=== PATIENT | male | born 1965 | race Caucasian/White ===

== ENCOUNTER 2017-10-06 16:47 | Inpatient (IN) | payer OTHER ==
[~2017-10-06] VITALS: Ht 188 cm; Wt 131.5 kg
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
[2017-10-06] MEDS ORDERED: MAGNESIUM HYDROXIDE 30 ML LIQUID UDC PO PRN (18:15)
[2017-10-06] MEDS ORDERED: LOPERAMIDE HCL 2 MG CAPSULE PO PRN ×2 (18:15)
[2017-10-06] MEDS ORDERED: ONDANSETRON 4 MG/2 ML VIAL IM PRN (18:15)
[2017-10-06] MEDS ORDERED: MIRALAX 17 GM POWD.PACK PO PRN (18:15)
[2017-10-06] MEDS ORDERED: 5 DAY TAPER BUPRENORPHINE -SERENITY PROTOCOL SL PRN (18:15)
[2017-10-06] MEDS ORDERED: DICYCLOMINE HCL 20 MG TABLET PO PRN (18:15)
[2017-10-06] MEDS ORDERED: MAG HYDROX/AL HYDROX/SIMETH 30 ML LIQUID UDC PO PRN (18:15)
[2017-10-06] MEDS ORDERED: ONDANSETRON ODT 4 MG TAB.RAPDIS SL PRN (18:15)
[2017-10-06 18:19] VITALS: BP 147/75
[2017-10-06 18:54] LABS: *AMPHETAMINE, URINE NEGATIVE (NEGATIVE); *BARBITURATE, URINE NEGATIVE (NEGATIVE); *CANNABINOID, URINE POSITIVE (NEGATIVE); *COCCAINE, URINE POSITIVE (NEGATIVE); *OPIATE, URINE POSITIVE (NEGATIVE); *PHENCYCLIDINE SCREEN,URINE NEGATIVE (NEGATIVE)
[2017-10-06] MEDS: BUPRENORPHINE HCL 2 MG TAB.SUBL SL PRN (18:59)
--- NOTE | 2017-10-06 19:02 | NUR ---
PRN GIVEN pt is noted with increase anxiety and agitation. Pt is observed restless and shifting in bed, facial grimacing and groaning, stuffy nose and tachy. Pt is c/o of generalized body aches 10/10. COWS scores was 20. Pt was given Subutex 4mg SL PRN as ordered. Endorsed to vending service technician nurse to re-assess PRN and to continue with admission.
[2017-10-06] MEDS: LORAZEPAM 1 MG TABLET PO PRN (19:23)
[2017-10-06] MEDS: IBUPROFEN 600 MG TABLET PO PRN (19:23)
[2017-10-06] MEDS: METHOCARBAMOL 750 MG TABLET PO PRN (19:23)
--- NOTE | 2017-10-06 19:25 | NUR ---
BEHAVIOR NOTE PT NOTED TO BE AGITATED,IRRITABLE AND C/O PAIN.BEGAN THROWING THINGS IN THE ROOM,ESCALATING IN BEHAVIOR,BEGAN CURSING AND YELLING AT STAFF,STATED " WHEN IS THE FUCKING DOCTOR COMING? I AM IN THE HOSPITAL AND STILL FEEL LIKE SHIT".EMOTIONAL SUPPORT AND RELAXATION TECHNIQUES EMPLOYED AND WERE HELPFUL IN CALMING HIM DOWN.EDUCATED ON UNIT RULES AND MEDICATIONS,WILL CONTINUE TO MONITOR.
[2017-10-06 20:00] VITALS: BP 104/56
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
[2017-10-06] MEDS: diphenhydrAMINE 50 MG CAPSULE PO PRN (20:10)
--- NOTE | 2017-10-06 20:10 | NUR ---
PRN MED PT CONTINUES TO REMAIN ANXIOUS AND RESTLESS,UNABLE TO SLEEP.PRN BENADRYL 50MG PO GIVEN FOR C/O INSOMNIA.WILL CONTINUE TO MONITOR.
[2017-10-06] MEDS ORDERED: OXYC30TA2 PO (20:44)
[2017-10-06] MEDS ORDERED: HYDR25TA4 PO (20:45)
[2017-10-06] MEDS ORDERED: CARV25TA PO (20:48)
--- NOTE | 2017-10-06 21:10 | NUR ---
PRN REASSESSMENT PT IS CALM AND SLEEPING AT THIS TIME.
--- NOTE | 2017-10-07 | NUR ---
COWS SORE IS 22.PT IS ANXIOUS,RESTLESS,MOANING AND GROANING D/T PAIN.REFUSED V/S./
--- NOTE | 2017-10-07 00:10 | NUR ---
PT REFUSED TO COOPERATE WITH BLOOD DRAW FOR LAB WORK X 2.PROMPTING AND PT TEACHING INEFFECTIVE.
[2017-10-07] MEDS: BUPRENORPHINE HCL 2 MG TAB.SUBL SL PRN ×2 (00:22→05:28)
[2017-10-07] MEDS: LORAZEPAM 1 MG TABLET PO PRN ×2 (00:22→05:28)
--- NOTE | 2017-10-07 00:22 | NUR ---
PRN MEDS PT IS AWAKE,MOANING AND GROANING IN PAIN,PRN SUBUTEX 4MG SL GIVEN FOR COWS 22,AND PRN ATIVAN 2 MG PO GIVEN FOR ANXIETY/AGITATION.WILL MONITOR.
[2017-10-07] MEDS: KETOROLAC TROMETHAMINE 30 MG INJ IM PRN ×2 (00:28→21:27)
--- NOTE | 2017-10-07 00:28 | NUR ---
PRN TORADOL 30 MG IM GIVEN FOR BILATERAL HIP AND LEG PAIN.PAIN LEVEL IS 10/10.WILL MONITOR FOR EFFECTIVENESS.
--- NOTE | 2017-10-07 01:25 | NUR ---
PRN REASSESSMENT PT IS CALM AND SLEEPING AT THIS TIME,UNABLE TO ASSESS FOR COWS D/T PT BEING ASLEEP.
[2017-10-07 04:00] VITALS: BP 141/90
--- NOTE | 2017-10-07 04:00 | NUR ---
COWS DEFERRED DUE TO PT BEING ASLEEP.
[2017-10-07] MEDS: IBUPROFEN 600 MG TABLET PO PRN (05:19)
[2017-10-07] MEDS: METHOCARBAMOL 750 MG TABLET PO PRN (05:19)
--- NOTE | 2017-10-07 05:19 | NUR ---
PT C/O PAIN IN BOTH LEGS BELOW HIS HIPS.PAIN LEVEL IS 10/10.PRN MEDS MOTRIN AND ROBAXIN GIVES ORDERED.WILL MONITOR FOR EFFECTIVENESS.
--- NOTE | 2017-10-07 05:28 | NUR ---
COWS=20 PRN SUBUTEX 4MG SL GIVEN FOR COWS 20.PRN ATIVAN 2 MG PO GIVEN FOR ANXIETY/AGITATION AND RESTLESSNESS.PT IS RESTLESS,AGITATED,UNABLE TO SIT STILL.LIVING AREA IS FULL OF CLUTTER WITH FOOD AND CHIPS ALL OVER THE FLOOR AND BED.PHYSICAL APPEARANCE IS DISHEVELLED AND UNKEMPT.PERSONAL HYGIENE AND CLEANLINESS ENCOURAGED.WILL CONTINUE TO MONITOR.
--- NOTE | 2017-10-07 06:30 | NUR ---
PRN F/U PT IS CALM AND RESTING IN BED WITH EYES CLOSED.NO S/S OF DISTRESS NOTED.WILL CONTINUE TO MONITOR.
--- NOTE | 2017-10-07 06:39 | NUR ---
END OF SHIFT Pt is a 52 y/o male admitted to [facility] for medically supervised withdrawals from Opiates.A/O X 4.Pt received multiple PRN medications during the night : Ativan 2mg x 3,Subutex 4mg x 3,Motrin x 3,Robaxin x 3,Benadryl x 1 and Toradol IM x 1.PT has been extremely anxious and restless,mood is labile ,tends to get easily agitated and gets argumentative.Pt was able to sleep 7 hours,fluid intake was 1850 mls,voided x 1.Pt will be started on 5 day Subutex taper today.He is resting in bed at this time,will endorse care to oncoming shift nurse.
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
--- NOTE | 2017-10-07 08:00 | NUR ---
COWS Deferred Pt resting with eyes closed, when disturbed becomes agitated and refuses CIWA assessment. Pt quickly returns to resting with eyes closed. Even and unlabored respirations noted. Will continue to monitor, support and encourage according to plan of care.
--- NOTE | 2017-10-07 08:30 | NUR ---
Lab Refusal Pt is requested to have labs drawn and becomes irritable, agitated and angry and states, " after I eat breakfast," when asked to provide for blood draw. Pt is asked again and states, " didn't you hear me, I said after I eat breakfast." Pt turns and looks at film writer with angry affect and congruent mood. Will continue to monitor, support and encourage according to plan of care.
[2017-10-07 08:59] VITALS: BP 148/80
[2017-10-07] MEDS ORDERED: TUBERCULIN,PURIF.PROT.DERIV. 5 TU/0.1 ML TEST ID ONE (09:00)
--- NOTE | 2017-10-07 10:00 | NUR ---
Lab Refusal Pt continues to refuse labs, until " after I am done eating." Sourcing Consultant unable to medicate until labs are drawn. Pt is aware and prefers to finish breakfast before lab draw. Will continue to monitor, support and encourage according to plan of care.
--- NOTE | 2017-10-07 10:45 | NUR ---
COWS 15 COWS deferred until pt awoke. Pt with tremors, agitation, anxiety and restless. Complaints of nausea, muscle aches and pains. Will continue to monitor, support and encourage according to plan of care.
[2017-10-07 11:16] LABS: ETHANOL < 3 MG/DL (0-0)
[2017-10-07 11:19] LABS: ALANINE AMINOTRANSFERASE 28 U/L (16-63); ALKALINE PHOSPHATASE 67 U/L (50-136); ASPARTATE AMINOTRANSFERASE 16 U/L (15-37); BILIRUBIN,TOTAL 0.3 mg/dL (0.2-1.0); CARBON DIOXIDE 25 mmol/L (21-32); CHLORIDE 105 mmol/L (98-107); CREATININE 0.9 mg/dL (0.6-1.3); GLUCOSE 208 mg/dL (74-106); MAGNESIUM 1.7 mg/dL (1.8-2.4); POTASSIUM 3.8 mmol/L (3.5-5.1); TOTAL PROTEIN, SERUM 6.5 g/dL (6.4-8.2); UREA NITROGEN, BLOOD 13 mg/dL (7-18)
[2017-10-07] MEDS: BUPRENORPHINE HCL 2 MG TAB.SUBL SL SCH ×4 (11:20→21:26)
--- NOTE | 2017-10-07 11:20 | NUR ---
Late Subutex Administration Pt was required to provide labs prior to administration of medication and pt refused on two occasions. MD was notified of late administration. Will continue to monitor, support and encourage according to plan of care.
[2017-10-07] MEDS: CARVEDILOL 25 MG TABLET PO SCH ×2 (11:57→17:34)
[2017-10-07] MEDS: HYDROCHLOROTHIAZIDE 25 MG TABLET PO SCH (11:58)
--- NOTE | 2017-10-07 12:00 | NUR ---
COWS 14 Pt with tremors, diaphoresis and is anxious and agitated, labile. Pt complains of nausea and generalized body discomfort. Will continue to monitor, support and encourage according to plan of care.
[2017-10-07 12:55] VITALS: BP 160/101
--- NOTE | 2017-10-07 13:09 | NUR ---
Updated Use History Pt tested positive for Benzodiazepine, Cocaine, THC and Opiates. Cable Tool Operator asked pt for clarification on amount of usage of both Benzodiazepines and ETOH, had mentioned on initial intake. Pt endorses one time use on ETOH, Cocaine and Benzodiazepines. Cable Tool Operator educated pt on need for complete disclosure in order for [facility] to treat him properly. Pt re-iterated he used these substances only one time and becomes irritated and agitated at the follow-up questions. Pt states he sweats in the morning and has generalized body aches when he awakens in the morning as a result of withdrawals from the Oxycodone. Pt states he is her, " to get it back," and his internal motivator is his daughter.
[2017-10-07] MEDS ORDERED: MAGNESIUM OXIDE 400 MG TABLET PO ONE ×2 (13:15→21:00)
--- NOTE | 2017-10-07 13:47 | NUR ---
BP Re-check Pt's BP on 1200 VS was 160/101, life underwriter in the room at time to administer pt's HTN medication. Health And Safety Representative re-checked BP: 144/88 with a P: 106. Will continue to monitor, support and encourage according to plan of care.
[2017-10-07 15:06] LABS: BASOPHILS % (AUTO) 0.4 % (0.0-2.0); EOSINOPHILS # (AUTO) 0.5 K/uL (0.0-0.7); HEMATOCRIT 46.9 % (36.7-47.1); HEMOGLOBIN 15.4 g/dL (12.5-16.3); LYMPHOCYTES # (AUTO) 2.2 K/uL (20.0-40.0); LYMPHOCYTES % (AUTO) 33.4 % (20.5-51.5); MEAN CORPUSCULAR HEMOGLOBIN 28.2 uug (23.8-33.4); MEAN CORPUSCULAR HGB CONC 33 g/dL (32.5-36.3); MEAN CORPUSCULAR VOLUME 85.5 fL (73.0-96.2); MONOCYTES # (AUTO) 0.7 K/uL (2.0-10.0); MONOCYTES % (AUTO) 11.1 % (0.0-11.0); NEUTROPHILS # (AUTO) 3.1 K/uL (1.8-8.9); NEUTROPHILS % (AUTO) 48.1 % (38.5-71.5); PLATELET COUNT (AUTO) 257 K/uL (152-348); RED BLOOD CELL COUNT(AUTO) 5.48 MIL/uL (4.06-5.63); WHITE BLOOD COUNT (AUTO) 6.5 K/uL (3.6-10.2)
[2017-10-07 16:59] VITALS: BP 142/97
--- NOTE | 2017-10-07 16:59 | NUR ---
COWS Deferred Pt resting with eyes closed for most of afternoon. VS stable, deferred due to pt's lethargy and unwillingness to partake in assessment due to somnolence. Will continue to monitor, support and encourage according to plan of care.
--- NOTE | 2017-10-07 17:25 | NUR ---
COWS Pt is diaphoretic with tremors and is anxious and agitated. Restless and irritable, but redirectable. Pt complains of nausea and muscle spasms and aches, bu requests no PRN, Subutex has been effective. Will continue to monitor, support and encourage according to plan of care.
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
[2017-10-07 20:00] VITALS: BP 148/82
--- NOTE | 2017-10-07 20:00 | NUR ---
Start of Shift Notes Received 52 y/o male px, admitted for medically supervised withdrawal from Oxycodone. Px was placed on 5 day Subutex taper. Last reported COWS by AM shift nurse is 14. During the rounds at 1999, px is awake on bed in left side lying position. Px appears anxious with good eye contact. Px is disheveled, unshaven, and odorous. Px stated that his anxiety is 8/10. He complains about his hot flushes, chills and sweats. He has H/A of 8/10 with generalized body ache of 8/10. Bed on lowest position, side rail up on right side but refused to put up side rail on the left side. Call light is within reach. We'll continue to monitor.
--- NOTE | 2017-10-07 20:00 | NUR ---
COWS 12 Px appears anxious with good eye contact. Px state that his anxiety is 8/10 with complaints of H/A and body aches of 8/10, hot flush/chills and sweats. He yawns 1x during rounds. No other complaints made at this time. We'll continue to monitor.
--- NOTE | 2017-10-07 21:00 | NUR ---
Behavioral Note Px doesn't want his VS to be taken and yelled that nobody is taking care of his phone call request. Px stated "I requested a phone call one and half days ago and until now, I never got one! I want to call my ." Px was calmly redirected and VS were taken.
--- NOTE | 2017-10-07 21:27 | NUR ---
PRN Toradol Px received Toradol 30 mg injection given IM on left deltoids for generalized body pains and H/A of 8/10. To reassess after 30 mins.
[2017-10-07] MEDS: diphenhydrAMINE 50 MG CAPSULE PO PRN (21:43)
[2017-10-07] MEDS: CLONIDINE HCL 0.1 MG TABLET PO PRN (21:43)
--- NOTE | 2017-10-07 21:43 | NUR ---
PRN Benadryl and Clonidine Px received Benadryl 50 mg/cap, 1 cap PO for insomnia and Clonidine 0.1 mg/tab, 1 tab PO for anxiety. To reassess after one hour.
--- NOTE | 2017-10-07 22:00 | NUR ---
Reassessment of pain Px stated that his pain improved but the pain is still there. We'll continue to monitor.
--- NOTE | 2017-10-07 22:45 | NUR ---
Reassessment Px is still awake but trying to sleep already. Px stated "I don't want you to take VS while I am sleeping." We'll continue to monitor.
--- NOTE | 2017-10-08 04:00 | NUR ---
COWS deferred COWS deferred at 0000 and 0400 due to the px is asleep, to assess if the px is awake per doctor's order. We'll continue to monitor.
--- NOTE | 2017-10-08 05:30 | NUR ---
COWS 12 Px just woke up. He appears anxious with good eye contact. Px state that his anxiety is still 7/10. Px has LBP of 8/10, hot flush/chills and sweats. TX= 71. We'll continue to monitor.
[2017-10-08] MEDS: KETOROLAC TROMETHAMINE 30 MG INJ IM PRN ×3 (05:35→20:49)
--- NOTE | 2017-10-08 05:35 | NUR ---
PRN Toradol Px received Toradol 30 mg injection given IM on right deltoids for LBP of 8/10. To reassess after 30 mins.
--- NOTE | 2017-10-08 06:05 | NUR ---
Reassessment of LBP Reassessment deferred due to the px is already asleep. We'll continue to monitor.
--- NOTE | 2017-10-08 07:05 | NUR ---
End of Shift Notes During the shift at 2126, px received Toradol 30 mg IM for H/A and body pains of 8/10. It was effective. Px was angry and agitated because of not approved phone call request. Px was redirected calmly. At 2142, px received Benadryl 50 mg PO for insomnia and Clonidine 0.1 mg PO for anxiety. Px refused VS taking for 0000 and 0400 if he is sleeping. At 0535, px woke up with severe LBP. Px received Toradol 30 mg IM as PRN medication. Px slept after 20 minutes. Px oral intake is 1 L, voided 2x, with 1x BM. Px slept for 7 hours. Last COWS 13 at 0530. At 0630, px is asleep on bed in right side lying position. Bed on lowest position, side rail up on right side but refused to put up side rail on the left side. Call light is within reach. We'll continue to monitor. Px endorsed to AM shift nurse.
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
[2017-10-08 08:08] VITALS: BP 139/78
--- NOTE | 2017-10-08 08:12 | NUR ---
COWS 14 Pt is diaphoretic, tremulous, labile and restless with restless legs. Pt complains of intermittent nausea and body pain thru out. Will continue to monitor, support and encourage according to plan of care.
[2017-10-08] MEDS: CARVEDILOL 25 MG TABLET PO SCH ×2 (08:30→18:10)
[2017-10-08] MEDS: HYDROCHLOROTHIAZIDE 25 MG TABLET PO SCH (08:30)
[2017-10-08] MEDS: BUPRENORPHINE HCL 2 MG TAB.SUBL SL SCH ×3 (08:31→20:45)
[2017-10-08 12:38] VITALS: BP 149/94
--- NOTE | 2017-10-08 12:40 | NUR ---
COWS 13 Pt is diaphoretic and restless with restless legs apparent. Pt is tremulous and endorses severe body aches and spasms. Will continue to monitor, support and encourage according to plan of care.
--- NOTE | 2017-10-08 13:00 | NUR ---
PRN Toradol Pt rates pain 9/10, chronic vs. withdrawals related. Meat Butcher administered medication per MD order with pt tolerating well, Will continue to monitor, support and encourage according to plan of care.
[2017-10-08 13:07] LABS: HEPATITIS B SURFACE AG Negative (Negative)
--- NOTE | 2017-10-08 13:30 | NUR ---
PRN RE-Assessment Pt endorses some relief, rating pain 6/10. Will continue to monitor, support and encourage according to plan of care.
[2017-10-08 17:16] VITALS: BP 138/87
--- NOTE | 2017-10-08 17:18 | NUR ---
COWS 14 Pt is diaphoretic, tremulous, anxious and restless. Pt complains of severe body aches, with pt rubbing at joint site. Pt complains of chills. Will continue to monitor, support and encourage according to plan of care.
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
--- NOTE | 2017-10-08 19:30 | NUR ---
Start of Shift Notes Received 52 y/o male caitlyn, admitted for medically supervised withdrawal from Oxycodone. Px was placed on 5 day Subutex taper. Last reported COWS by AM shift nurse is 14. During the rounds at 1930, px is awake in his room sitting on the edge of the bed. Px appears anxious with good eye contact. Px just took his shower. Px is moaning, grimacing and rubbing his low back. Px stated that his LBP is killing him and his anxiety is 7/10. He complains about his hot flushes, chills and sweats with stuffy nose. Bed on lowest position, side rail up on right side but refused to put up side rail on the left side. Call light is within reach. We'll continue to monitor.
[2017-10-08 20:00] VITALS: BP 148/104
--- NOTE | 2017-10-08 20:00 | NUR ---
COWS 12 Px just got out from the shower. Px appears anxious with good eye contact. Px is moaning and rubbing his low back. Px state that his anxiety is still 7/10. Px has LBP of 8/10, hot flush/chills and sweats. CA= 93. We'll continue to monitor.
[2017-10-08] MEDS: CLONIDINE HCL 0.1 MG TABLET PO PRN (20:49)
--- NOTE | 2017-10-08 20:49 | NUR ---
PRN medications Px received Toradol 30 mg IM on left deltoids for LBP of 8/10 and Clonidine 0.1 mg/tab, 1 tab PO for increase anxiety. We'll continue to monitor.
--- NOTE | 2017-10-08 21:20 | NUR ---
COWS 10 Px stated that he wants to sleep now and refused VS monitoring of 0000 and 0400. Px appears anxious with good eye contact. LBP improved fro 8/ to 6/10. Px state that his anxiety is still 7/10. Complains of hot flush/chills and sweats. UT= 88. We'll continue to monitor.
--- NOTE | 2017-10-08 21:20 | NUR ---
Reassessment of LBP Px stated that his LBP improved from 10/24 to 6. Warm packs given to apply on low back. We'll continue to monitor.
[2017-10-08] MEDS: diphenhydrAMINE 50 MG CAPSULE PO PRN (21:37)
[2017-10-08 21:50] VITALS: BP 145/94
--- NOTE | 2017-10-08 21:50 | NUR ---
Reassessment of anxiety Px stated that his anxiety is still the same at 09/23. BP= 145/94. We'll continue to monitor.
--- NOTE | 2017-10-09 | NUR ---
COWS deferred COWS deferred due to the px is asleep, to assess if the px is awake per doctor's order. We'll continue to monitor.
--- NOTE | 2017-10-09 04:00 | NUR ---
COWS deferred COWS deferred due to the px is asleep, to assess if the px is awake per doctor's order. We'll continue to monitor.
--- NOTE | 2017-10-09 06:00 | NUR ---
COWS 14 Px just woke up. He appears anxious with good eye contact. Px state that his anxiety is still 7/10. Px has LBP of 8/10, hot flush/chills and sweats. TN= 91. We'll continue to monitor.
[2017-10-09] MEDS: KETOROLAC TROMETHAMINE 30 MG INJ IM PRN ×3 (06:17→20:15)
--- NOTE | 2017-10-09 06:17 | NUR ---
PRN Toradol Px complained of 8/10 LBP. Toradol 30 mg injection given IM on right deltoids. To reassess after 30 mins.
--- NOTE | 2017-10-09 06:47 | NUR ---
Reassessment of LBP Px stated that his LBP improved from 8/10 to 6/10.
--- NOTE | 2017-10-09 07:05 | NUR ---
End of Shift Notes During the shift at 2048, px received Toradol 30 mg injection IM on left deltoids for LBP of 8/10 and Clonidine 0.1 mg PO for anxiety. They were effective. Warm compress also applied on low back. At 2136, px received Benadryl 50 mg PO for insomnia. Px oral intake is 750 ml, voided 2x, without BM. Px slept for 8 hours. At 616, px received Toradol 30 mg IM on right deltoids. It was effective. At 0630, px is awake on bed in left side lying position. Last COWS 14. Bed on lowest position, side rail up on right side but refused to put up side rail on the left side. Call light is within reach. We'll continue to monitor. Px endorsed to AM shift nurse.
--- NOTE | 2017-10-09 07:30 | NUR ---
START OF SHIFT Pt 52 y/o male admitted for opiate withdrawal. Pt received in room with eyes closed resting but easily arousable to name. Pt alert and oriented to name, place, and time. [place]. Skin warm and moist to touch. Respirations even and unlabored. Bilateral hand tremors noted. Appears disheveled, unkempt, and malodorous. Underwear scattered on the floor and on top of drawers. Blankets scattered throughout the room as well. Anxious and agitated this morning because stated had difficulty sleeping last night. Has difficulty concentrating because pt not able to lay still due to back pain. Encouraged to maintain hygiene. It was reported that pt slept for 8 hours last night, but pt states it was intermittent sleep. Pt is on a 5 day subutex taper and is on day 3. Bed on lowest position with side rails x2 up for safety. Call light within reach.
[2017-10-09 08:00] VITALS: BP 142/88
--- NOTE | 2017-10-09 08:00 | NUR ---
COWS ASSESSMENT cows=12. Pulse=70. Irritable and agitated, raising voice, with pressured speech noted. Pt with c/o body pain mostly lower back and bilateral hips 10/10 aching. Pt describes it was " unbearable". Fidgety, not able to lay still, guarded. Bilateral hand tremors noted. Difficulty concentrating.
[2017-10-09] MEDS: HYDROCHLOROTHIAZIDE 25 MG TABLET PO SCH (08:56)
[2017-10-09] MEDS: CARVEDILOL 25 MG TABLET PO SCH ×2 (08:56→17:17)
[2017-10-09] MEDS ORDERED: BUPRENORPHINE HCL 2 MG TAB.SUBL SL SCH (09:00)
[2017-10-09] MEDS: ACETAMINOPHEN 325 MG TABLET PO PRN ×2 (09:10→20:13)
[2017-10-09] MEDS: METHOCARBAMOL 750 MG TABLET PO PRN ×2 (09:10→20:14)
--- NOTE | 2017-10-09 09:11 | NUR ---
PRN TYLENOL AND ROBAXIN Pt with back pain 10/10, described as aching. Observed frequently changing positions and grunting. Tylenol po prn per MD order and Robaxin po prn per MD order given and tolerated well.
--- NOTE | 2017-10-09 10:11 | NUR ---
PRN TYLENOL ROBAXIN EVAL Pt still states pain is 8/10 and body aches 8/10. aware.
[2017-10-09 12:00] VITALS: BP 148/100
--- NOTE | 2017-10-09 12:00 | NUR ---
COWS ASSESSMENT cows=16. Pulse =78. Restless and irritable. Disheveled and malodorous. Observed moving around on the bed when laying and pacing when standing. Cmplaints of pain 10/10 of lower back. Will continue to monitor.
[2017-10-09] MEDS: CLONIDINE HCL 0.1 MG TABLET PO PRN ×2 (12:50→20:14)
--- NOTE | 2017-10-09 12:54 | NUR ---
PRN CATAPRES Pt with ny=488/102. Catapres po prn per MD order given and tolerated well.
[2017-10-09] MEDS: LIDOCAINE 5% PATCH TD SCH (13:42)
--- NOTE | 2017-10-09 13:54 | NUR ---
PRN THU NAILSAL pt with gk=170/76
[2017-10-09] MEDS: BUPRENORPHINE HCL 2 MG TAB.SUBL SL SCH ×2 (14:19→20:14)
--- NOTE | 2017-10-09 14:27 | NUR ---
PRN TORADOL Pt with c/o pain lower back pain 10/10 aching. Toradol IM prn per MD order given and tolerated well.
[2017-10-09] MEDS: DULOXETINE 30 MG CAPSULE.DR PO SCH (14:30)
--- NOTE | 2017-10-09 15:27 | NUR ---
PRN TORADOL EVAL Pt states pain 09/23. MD aware with new order for pain consult and lidocaine patch topical per MD order.
[2017-10-09 16:00] VITALS: BP 136/72
--- NOTE | 2017-10-09 16:00 | NUR ---
COWS ASSESSMENT cows=17. Bilateral hand tremors noted. Irritable and agitated. C/o pain on lower back aching. Restless, frequently changing positions in bed. Compliant of episodes of sweats. Will continue to monitor.
--- NOTE | 2017-10-09 18:46 | NUR ---
END OF SHIFT Pt 52 y/o male admitted for opiate withdrawal. Pt alert and oriented to name, place, and time. [place]. Skin warm and moist to touch. Respirations even and unlabored. Bilateral hand tremors noted. Appears disheveled, unkempt, and malodorous. Clothes and empty drink bottles scattered throughout the room. Encouraged to maintain hygiene. Anxious and restless throughout the day, pacing and frequently changing positions. Focused on lower back ache throughout the day. Attended group activity. Low motivation for self care. Seen by MD today. Medication complaint. On a 5 day subutex taper and is on day 3. Last cows=17 @1600. Received toradol im prn per MD order for lower back pain, Robaxin po prn per MD order for body aches, Tylenol po prn per MD order for generalized pain, and catapres po prn per MD order or dbp>100. Bed on lowest position with side rails x2 up for safety. Call light within reach.
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
[2017-10-09 20:00] VITALS: BP 151/101
--- NOTE | 2017-10-09 20:00 | NUR ---
COWS ASSESSMENT COWS 20. Pt has been presenting w/ flush and clammy skin, extremely restless and irritable, enlarged pupils, stuffy nose, fine tremors, and anxious mood. Pt has been c/o severe lower back pain. V/S: T:98.1, P:80, RR:18, SPO2:99, and BP:151/101.
[2017-10-09] MEDS: diphenhydrAMINE 50 MG CAPSULE PO PRN (20:14)
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
--- NOTE | 2017-10-09 21:15 | NUR ---
PRN TORADOL, BENADRYL, CLONIDINE, ROBAXIN, AND TYLENOL REASSESSMENT Pt is in bed. Pt states slight relief of pain, "It has taken the edge off and I feel like I can fall asleep". Will continue to monitor pt.
--- NOTE | 2017-10-10 | NUR ---
COWS DEFERRED Pt is in bed w/ his eyes closed. Pt's respirations are unlabored and even.
[2017-10-10 04:00] VITALS: BP 144/98
--- NOTE | 2017-10-10 04:00 | NUR ---
COWS ASSESSMENT COWS 17. Pt has been presenting w/ flush and clammy skin, extremely restless and irritable, enlarged pupils, stuffy nose, fine tremors, and anxious mood. Pt has been c/o severe lower back pain 12/24. V/S: T:98.0, P:86, RR:18, SPO2:99, BP:144/98.
[2017-10-10] MEDS: METHOCARBAMOL 750 MG TABLET PO PRN ×2 (04:34→12:57)
[2017-10-10] MEDS: KETOROLAC TROMETHAMINE 30 MG INJ IM PRN ×2 (04:34→12:57)
--- NOTE | 2017-10-10 04:34 | NUR ---
PRN TORADOL, CLONIDINE, ROBAXIN, AND TYLENOL ADMINISTRATION Toradol 30mg IM, Clonidine 0.1mg, Robaxin 750mg, and Tylenol 650mg given for pain. 10/10, localized, throbbing and chronic, aggravated by position change, and alleviated by medication. Will reassess pt in 30 min and 1 hr.
[2017-10-10] MEDS: ACETAMINOPHEN 325 MG TABLET PO PRN ×2 (04:35→12:56)
[2017-10-10] MEDS: CLONIDINE HCL 0.1 MG TABLET PO PRN ×2 (04:35→12:57)
--- NOTE | 2017-10-10 05:34 | NUR ---
PRN TORADOL, CLONIDINE, ROBAXIN, AND TYLENOL REASSESSMENT' Pt is in bed w/ his eyes closed. Pt's respirations are unlabored and even.
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
--- NOTE | 2017-10-10 07:30 | NUR ---
START OF SHIFT Pt 52 y/o male admitted for opiate withdrawal. Pt received in room with eyes closed resting. Alert and oriented to name, place, and time. [place]. Skin warm and moist to touch. Respirations even and unlabored. Bilateral hand tremors noted. Anxious and irritable this morning, raising voice a few times this morning. Not able to lay still in bed. Appears disheveled and unkempt. Clothes scattered throughout the room. Encouraged to maintain hygiene. It was reported that pt slept for 6.5 hours last night. Last cows=17 reported @0400. Pt is on a 5 day subutex and is on day 4. Bed on lowest position with side rails x2 up for safety. Call light within reach.
[2017-10-10 08:00] VITALS: BP 128/101
--- NOTE | 2017-10-10 08:00 | NUR ---
COWS ASSESSMENT cows=16. Bilateral hand tremors. With complaints of sweats. Perspiration noted on forehead. Appears fatigued at times. Easily irritable with pressured speech noted. Complaints of muscle aches mostly around lower back. Also with complaints of insomnia. Restless when awake, unable to lay still. Complaints of pain of lower back with ADLs. Will notify psychiatrist re: insomnia. Will continue to monitor.
[2017-10-10] MEDS: CARVEDILOL 25 MG TABLET PO SCH ×2 (08:35→17:02)
[2017-10-10] MEDS: DULOXETINE 30 MG CAPSULE.DR PO SCH (08:35)
[2017-10-10] MEDS: BUPRENORPHINE HCL 2 MG TAB.SUBL SL SCH ×3 (08:35→20:58)
[2017-10-10] MEDS: HYDROCHLOROTHIAZIDE 25 MG TABLET PO SCH (08:36)
[2017-10-10] MEDS: LIDOCAINE 5% PATCH TD SCH ×2 (09:00→13:01)
--- NOTE | 2017-10-10 10:43 | NUR ---
LIDOCAINE REFUSED Pt refused to have lidocaine patch put on and requested to have it applied on 1400. Pharmacy aware.
[2017-10-10 12:00] VITALS: BP 151/96
--- NOTE | 2017-10-10 12:00 | NUR ---
COWS ASSESSMENT cows=14. Agitated, raising voice. Complaints of pain of lower back. Not able to sit still. Guarding his lower back. Anxious. Skin warm and moist to touch. Bilateral hand tremors noted. Intermittent perspiration noted.
--- NOTE | 2017-10-10 13:06 | NUR ---
PRN CATAPRES TYLENOL TORADOL ROBAXIN Complaint of lower back pain / aches 10/24. Guarding lower back. Irritable. Anxious. States," my back is hurting." Not able to sit still. Catapres po prn per MD order given, tylenol po prn per MD order given, toradol IM prn per MD order given, and robaxin po prn per MD order given and tolerated well.
--- NOTE | 2017-10-10 14:06 | NUR ---
PRN CATAPRES TYL TORADOL ROBAXIN EVAL Pt states pain 6/10 and body aches 6/10 of lower back. Pt states feels less anxious, but still irritable.
[2017-10-10 16:00] VITALS: BP 160/103
--- NOTE | 2017-10-10 16:00 | NUR ---
COWS ASSESSMENT cows=14. Pt irritable and anxious, not able to sit still. Focused on pain of lower back 09/23. Observed pacing around. Complaints of chills and sweats intermittently. Bilateral hand tremors noted. Will continue to monitor.
[2017-10-10] MEDS: HYDROXYZINE PAMOATE 25 MG CAPSULE PO PRN (17:16)
--- NOTE | 2017-10-10 17:17 | NUR ---
PRN VISTARIL Pt anxious and restless. States," My skin feels like it's gonna crawl out of my skin". MD aware with new order for vistaril 50mg po prn 4hr for anxiety, noted and carried out.
--- NOTE | 2017-10-10 18:51 | NUR ---
END OF SHIFT Pt 52 y/o male admitted for opiate withdrawal. Pt alert and oriented to name, place, and time. [place]. Skin warm and moist to touch. Respirations even and unlabored. Bilateral hand tremors noted. Intermittent perspiration throughout the day. Generalized discomfort throughout the day. Guarding lower back. Appears disheveled and unkempt. Clothes scattered throughout the room. Encouraged to maintain hygiene. Low motivation for self care. Attended group activity. Was seen by MD today. Medication compliant. On a 5 day subutex taper and is on day 4. Last cows= 14@1600. Received toradol IM prn per MD order for lower back pain, Tylenol po prn per MD order for lower back pain, and catapres po prn per MD order for anxiety. Bed on lowest position with side rails x 2 up for safety. Call light within reach.
--- NOTE | 2017-10-10 19:44 | NUR ---
START OF SHIFT NOTE Rcvd report from outgoing nurse. Pt is a 52 y/o male A/O to person, place, time, and purpose. Pt was admitted for medically supervised withdrawal from Oxycodone. Pt has been c/o back pain, body aches, anxiety, headache, and leg cramps. Pt has chronic back pain: 5/10, throbbing, localized to lower back, aggravated by postural positioning, and alleviated w/ medication and position change. Pt denies S/I and H/I. PRN Toradol, Tylenol, Vistaril, Robaxin, and Clonidine given for pain and anxiety. Last COWS 14 @ 1600. Call light is within reach. Pt will continue to be monitored and needs met.
[2017-10-10 20:00] VITALS: BP 125/72
--- NOTE | 2017-10-10 20:00 | NUR ---
COWS ASSESSMENT COWS 13. Pt prsenting w/ body aches, low back pain, anxiety, headache, leg cramps, depressed mood, flat affect, and emotional amplification. V/S:T:98.1, P:76, RR:16, SPO2:99, BP:125/72.
[2017-10-10] MEDS ORDERED: TRAZODONE 100 MG TABLET PO SCH (21:00)
[2017-10-11] VITALS: BP 128/72
--- NOTE | 2017-10-11 00:30 | NUR ---
COWS ASSESSMENT COWS 11. Pt presenting w/ insomnia, anxiety, restlessness, body aches, and back pain. Pt states "I can't fall asleep. I'm tired as hell, but I just stare at the wall". V/S: T:98.2, P:88, RR:18, SPO2:98, BP:128/82.
--- NOTE | 2017-10-11 04:01 | NUR ---
COWS DEFERRED Pt is in bed w/ his eyes closed. Pt's respirations are unlabored and even.
--- NOTE | 2017-10-11 07:14 | NUR ---
END OF SHIFT NOTE Endorsed pt to oncoming nurse. Pt is a 52 y/o male A/O to person, place, time, and purpose. Pt was admitted for medically supervised withdrawal from Oxycodone. Pt has been c/o back pain, body aches, anxiety, headache, and leg cramps. Pt has chronic back pain: 5/10, throbbing, localized to lower back, aggravated by postural positioning, and alleviated w/ medication and position change. Pt rcvd no PRN medications during the current shift. Pts fluid intake was 1000ml and he voided 1 time. Pt slept for5.25 hrs. Last COWS 11 @ 0000. Call light is within reach.
--- NOTE | 2017-10-11 07:50 | NUR ---
START OF SHIFT Pt is a 52 y/o M admitted on 10/06/17 for medically supervised opiate withdrawal. Pt is placed on a 5 day subutex taper; today being the last day and tolerating well. Pt has a friendly demeanor, restlessly moving around and shifting positions frequently in bed, pt c/o back ache 10/10 pain with facial grimacing. Pt also presents anxiety, agitation, restlessness, clammy skin, dysphoria, anhedonia, pupils larger than normal, nasal congestion, fine tremors, generalized body pain and back pain. Last COWS 16 @mn. Encouraged pt to increase fluids as tolerated to facilitate in detox. Educated pt on S/S to report. Side rails upx2, bed in low position, call light is within reach. Safety measures in place. Will continue to monitor closely.
[2017-10-11 08:00] VITALS: BP 142/80
[2017-10-11] MEDS ORDERED: BUPRENORPHINE HCL 2 MG TAB.SUBL SL SCH (09:00)
--- NOTE | 2017-10-11 09:00 | NUR ---
COWS ASSESSMENT 16 Upon assessment, multiple drink bottles are on tables and countertops, pt is laying in bed, restlessly moving around and shifting positions frequently in bed, pt c/o back ache 10/10 pain with facial grimacing. Pt also presents diaphoresis, intermittent chills, anxiety, agitation, restlessness, clammy skin, dysphoria, anhedonia, pupils larger than normal, nasal congestion, fine tremors, generalized body pain and back pain. Will give Toradol 30mg IM, robaxin 750 mg po and scheduled medications. Will continue to monitor.
[2017-10-11] MEDS: DULOXETINE 30 MG CAPSULE.DR PO SCH (09:27)
[2017-10-11] MEDS: CARVEDILOL 25 MG TABLET PO SCH ×2 (09:28→18:22)
[2017-10-11] MEDS: HYDROCHLOROTHIAZIDE 25 MG TABLET PO SCH (09:28)
[2017-10-11] MEDS: KETOROLAC TROMETHAMINE 30 MG INJ IM PRN ×2 (09:35→21:38)
--- NOTE | 2017-10-11 09:35 | NUR ---
PRN Toradol 30 mg IM given for back pain / w/ facial grimacing, restlessness, and irritability. Will monitor and reassess.
--- NOTE | 2017-10-11 10:35 | NUR ---
REASSESSMENT Pt reports med as effective in decreasing his back pain 08/24. Will continue to monitor.
[2017-10-11 12:00] VITALS: BP 148/98
--- NOTE | 2017-10-11 12:45 | NUR ---
COWS ASSESSMENT 16 Pt continues to move around restlessly and shifting positions, pt c/o back ache 10/24 pain with facial grimacing. Pt continues to presents diaphoresis, intermittent chills, anxiety, agitation, restlessness, dysphoria, anhedonia, pupils larger than normal, nasal congestion, fine tremors, generalized body pain and back pain. Scheduled lidocaine patch to be given; declines prn meds at this time. Will continue to monitor.
[2017-10-11] MEDS: LIDOCAINE 5% PATCH TD SCH (13:04)
[2017-10-11 14:13] LABS: BILIRUBIN,TOTAL 0.4 mg/dL (0.2-1.0); MAGNESIUM 1.9 mg/dL (1.8-2.4); POTASSIUM 4.6 mmol/L (3.5-5.1); TOTAL PROTEIN, SERUM 7.2 g/dL (6.4-8.2)
--- NOTE | 2017-10-11 16:37 | NUR ---
COWS ASSESSMENT 16 Pt walked out of group in a wheelchair due back pain. Pt continues to presents diaphoresis, intermittent chills, anxiety, agitation, restlessness, dysphoria, anhedonia, pupils larger than normal, nasal congestion, fine tremors, generalized body pain and back pain 08/24. Toradol was given and pt declines other prn meds at this time. Will continue to monitor. Addendum: 10/11/17 at 1650 by YEE HENDRICKS RN [facility] 12
[2017-10-11 16:55] VITALS: BP 149/98
[2017-10-11] MEDS ORDERED: METH-406 PO (18:24)
--- NOTE | 2017-10-11 18:29 | NUR ---
END OF SHIFT Pt has completed a 5 day subutex taper and tolerated well. Pt is scheduled to be discharged tomorrow. Pt has been given robaxin po prn, toradol 30 mg IM x2 during shift for severe persistent back pain. Last COWS 12 @1600. Safety measures in place. Will give endorsement to shift lab technician nurse.
--- NOTE | 2017-10-11 19:56 | NUR ---
START OF SHIFT NOTE Rcvd report from the outgoing nurse. Pt is a 52 y/o male A/O to person, place, time, and purpose. Pt was admitted fro medically supervised withdrawal from Oxycodone. Pt has been c/o of chills, sweats, body and join aches, as well as, back pain. Pt has been presenting w/ anxiety, restlessness, and flushing. Pt denies any S/I and H/I. PRN Toradol (x2) and Robaxin were given during previous shift for pain, noted effective. Last COWS 12 @ 1600. Call light is within reach. Pt will continue to be monitored and needs met.
[2017-10-11 20:00] VITALS: BP 163/103
--- NOTE | 2017-10-11 20:00 | NUR ---
COWS ASSESSMENT COWS 11. Pt presenting w/ anxiety, sweats, body and joint aches, back pain, stuffiness, flushing, restlessness, and chills. V/S: T:98.5, P:98, RR:14, SPO2:99, BP:153/103.
[2017-10-11] MEDS: ACETAMINOPHEN 325 MG TABLET PO PRN (21:38)
--- NOTE | 2017-10-11 21:38 | NUR ---
PRN TORADOL, ROBAXIN, AND TYLENOL ADMINISTRATION Toradol 30mg IM, Robaxin 750mg, and Tylenol 650mg given for body aches, headaches, and back pain. 8/10, localized, throbbing, aggravated by postural changes, ADL's, and mvmt. Will reassess pt in 1 hr.
[2017-10-11] MEDS: METHOCARBAMOL 750 MG TABLET PO PRN (21:39)
[2017-10-11] MEDS: TRAZODONE 100 MG TABLET PO SCH (21:39)
--- NOTE | 2017-10-11 22:38 | NUR ---
PRN TORADOL, ROBAXIN, AND TYLENOL REASSESSMENT Pt is in bed w/ his eyes closed. Pt's respirations are unlabored and even.
--- NOTE | 2017-10-12 00:01 | NUR ---
COWS DEFERRED Pt is in bed w/ his eyes closed. Pt's respirations are unlabored and even.
--- NOTE | 2017-10-12 04:02 | NUR ---
COWS DEFERRED Pt is in bed w/ his eyes closed. Pt's respirations are unlabored and even.
--- NOTE | 2017-10-12 07:13 | NUR ---
END OF SHIFT NOTE Endorsed pt to the oncoming nurse. Pt is a 52 y/o male A/O to person, place, time, and purpose. Pt was admitted fro medically supervised withdrawal from Oxycodone. Pt has been c/o of chills, sweats, body and join aches, as well as, back pain. Pt has been presenting w/ anxiety, restlessness, and flushing. Pt denies any S/I and H/I. PRN Toradol 30mg IM, Tylenol 650mg, and Robaxin 750mg were given during for pain, noted effective. Pts fluid intake was 1300ml and he voided 1 time. Pt slept for 7.5hrs. Last COWS 11 @ 2000. Call light is within reach.
[2017-10-12] MEDS ORDERED: KETOROLAC TROMETHAMINE 30 MG INJ IM ONE (07:30)
--- NOTE | 2017-10-12 07:30 | NUR ---
START OF SHIFT Pt 52 y/o male admitted for opiate withdrawal. Received in awake in room walking around. Alert and oriented to name, place, and time. [place]. Skin warm and dry to touch. Respirations even and unlabored. Appears disheveled and unkempt. Empty drink bottles scattered throughout the room. Irritable this morning. Observed grunting, focused on lower back pain. Encouraged to maintain hygiene. It was reported that pt slept for 7.5 hours last night. Last reported cows=11 @ 1999. Pt completed a 5 day subutex taper. Pt is scheduled to be discharged today. Bed on lowest position with side rails x2 up for safety. Call light within reach.
[2017-10-12 08:00] VITALS: BP 147/101
--- NOTE | 2017-10-12 08:00 | NUR ---
COWS ASSESSMENT cows=8. Complaint of lower back pain and aches. Anxious. Irritable. Intermittent sweats.
[2017-10-12] MEDS: METHOCARBAMOL 750 MG TABLET PO PRN ×2 (08:14→16:51)
[2017-10-12] MEDS: HYDROXYZINE PAMOATE 25 MG CAPSULE PO PRN (08:14)
[2017-10-12] MEDS: ACETAMINOPHEN 325 MG TABLET PO PRN ×2 (08:14→16:51)
[2017-10-12] MEDS: DULOXETINE 30 MG CAPSULE.DR PO SCH (08:14)
[2017-10-12] MEDS: CARVEDILOL 25 MG TABLET PO SCH ×2 (08:14→17:01)
[2017-10-12] MEDS: HYDROCHLOROTHIAZIDE 25 MG TABLET PO SCH (08:21)
--- NOTE | 2017-10-12 08:22 | NUR ---
PRN ROBAXIN TYLENOL VISTARIL Pt with complaints of lower back ache 09/23. Also complaint of lower back pain 08/24. Anxious about discharge. Robaxin po prn per MD order, tylenol po prn per MD order, and vistaril po prn per MD order given and tolerated well.
[2017-10-12] MEDS ORDERED: DULOXETINE 30 MG CAPSULE.DR PO SCH (09:00)
[2017-10-12] MEDS ORDERED: LIDO30AD10 TD (09:09)
--- NOTE | 2017-10-12 09:22 | NUR ---
PRN ROBAXIN TYLENOL VISTARIL EVAL states back ache 5/10 and lower back pain 5/10. Pt states feels less anxious.
[2017-10-12] MEDS ORDERED: DULOXETINE 30 MG CAPSULE.DR PO ONE (09:30)
[2017-10-12 12:00] VITALS: BP 149/96
--- NOTE | 2017-10-12 12:00 | NUR ---
COWS ASSESSMENT cows=7. Irritable. Complaints of lower back pain. Generalized discomfort. Anxious and restless.
--- NOTE | 2017-10-12 13:37 | NUR ---
Therapist prompted client to attend group therapy sessions.
[2017-10-12] MEDS: LIDOCAINE 5% PATCH TD SCH (14:59)
[2017-10-12] MEDS: KETOROLAC TROMETHAMINE 30 MG INJ IM PRN ×2 (15:23→22:06)
--- NOTE | 2017-10-12 15:29 | NUR ---
PRN TORADOL States pain 9/10 of lower back. Toradol IM prn per MD order given and tolerated well.
[2017-10-12 16:00] VITALS: BP 165/106
--- NOTE | 2017-10-12 16:00 | NUR ---
COWS ASSESSMENT cows=8. complaint of lower back pain 9/10. Anxious and restless. irrritable. Complaints of perspiration.
--- NOTE | 2017-10-12 16:29 | NUR ---
PRN TORADOL EVAL Pt states pain 08/24.
--- NOTE | 2017-10-12 16:51 | NUR ---
PRN TYL ROBAXIN States has lower back aches 9/10 and lower back pain 9/10. Tylenol po prn per MD order and Robaxin po prn per MD order given and tolerated well.
--- NOTE | 2017-10-12 17:51 | NUR ---
PRN OCTAVIA SIMEON Pt states body aches 6/10 and lower back pain 6/10.
--- NOTE | 2017-10-12 18:37 | NUR ---
END OF SHIFT Pt 52 y/o male admitted for opiate withdrawal. Alert and oriented to name, place, and time. [place]. Skin warm and moist to touch. Respirations even and unlabored. Appears disheveled. Clothes and food wrappings scattered throughout the room. Encouraged to maintain hygiene. Anxious and irritable today. Complaint of lower back pain throughout the day. Discharge date rescheduled for tomorrow. Attended group activity. Was seen by MD today. Medication compliant. Pt completed a 5 day subutex taper. Last cows=8@1600. Bed on lowest position with side rails x2 up for safety. Call light within reach.
--- NOTE | 2017-10-12 19:30 | NUR ---
Start of shift note Received report from day shift Nurse. Patient is a 52 year old male admitted for Opiate withdrawal. Patient completed 5 day Subutex taper. Patient is medically cleared to be discharge tomorrow. Patient was given PRN Toradol IM x 2, Robaxin x 2, Tylenol x 2 and Vistaril. Last COWS 8. Patient odorous, anxious, restless, unable to stay still, angry , irritable and c/o generalized body pain. Relaxation technique provided. Safety measures in place. Call light in reach. Will continue to monitor
[2017-10-12 20:00] VITALS: BP 170/103
--- NOTE | 2017-10-12 20:00 | NUR ---
COWS assessment Patient anxious, restless, unable to stay still, angry , irritable, sweating, restless legs and c/o generalized body pain. COWS 9
[2017-10-12] MEDS: CLONIDINE HCL 0.1 MG TABLET PO PRN (20:28)
--- NOTE | 2017-10-12 20:28 | NUR ---
PRN Clonidine administration Patient's blood pressure 170/103. Will monitor for effectiveness
[2017-10-12 21:28] VITALS: BP 142/90
--- NOTE | 2017-10-12 21:28 | NUR ---
PRN Clonidine re-assessment Patient Blood Pressure rechecked and is now 142/90
[2017-10-12] MEDS: TRAZODONE 100 MG TABLET PO SCH (22:05)
--- NOTE | 2017-10-12 22:06 | NUR ---
PRN Toradol IM administration Patient c/o generalized body aches . Will monitor for effectiveness
--- NOTE | 2017-10-12 22:36 | NUR ---
PRN Toradol IM re-assessment Patient lying in bed with eyes closed, no facial grimacing. Will continue to monitor.
--- NOTE | 2017-10-13 | NUR ---
COWS assessment Patient lying in bed with eyes closed. Respiration even and unlabored. VS refused. Will continue to monitor
--- NOTE | 2017-10-13 04:00 | NUR ---
COWS assessment Patient lying in bed with eyes closed. Respiration even and unlabored. VS refused. Will continue to monitor
--- NOTE | 2017-10-13 07:09 | NUR ---
End of shift note Patient slept 6 hours. Fluid intake 1,000 ml. Voided x 3 . No BM . Monitored patient throughout shift. Patient completed 5 day Subutex taper. Patient is medically cleared to be discharge today. Patient anxious, restless, unable to stay still, angry , irritable and c/o generalized body pain beginning of shift. Relaxation technique provided. Patient frequently goes down to smoke during shift. PRN Clonidine given for BP-170/103 effective, BP rechecked and it went down to 142/90. PRN Toradol IM given for generalized body aches. Safety measures in place. Call light in reach. Will continue to monitor. Last COWS 9.
[2017-10-13 08:00] VITALS: BP 137/94
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
[2017-10-13 08:19] VITALS: BP 137/94
[2017-10-13] MEDS: METHOCARBAMOL 750 MG TABLET PO PRN (08:19)
[2017-10-13] MEDS: HYDROCHLOROTHIAZIDE 25 MG TABLET PO SCH (08:19)
[2017-10-13] MEDS: KETOROLAC TROMETHAMINE 30 MG INJ IM PRN (08:19)
[2017-10-13] MEDS: CARVEDILOL 25 MG TABLET PO SCH (08:19)
[2017-10-13] MEDS: ACETAMINOPHEN 325 MG TABLET PO PRN (08:19)
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
[2017-10-13] MEDS ORDERED: DULOXETINE 60 MG CAPSULE.DR PO SCH (09:00)
--- NOTE | 2017-10-13 09:00 | NUR ---
Toradol, Tylenol, and Robaxin Reassessment: Pt stated some relief from pain. Pt able to walk from room to patio without complaints. Pain level 3/10 PRN medications effective.
--- NOTE | 2017-10-13 09:32 | NUR ---
Discharge Note: Pt to be discharged to [facility]. All prescriptions, education materials, luggage, and possessions given. Pt in stable condition at time of discharge. Pt escorted downstairs to private truck driver helper. Pt left at 0932.
== END 2017-10-13 09:32 | disposition home or self-care (01) | DRG 895 ==
LOC: SRC 16:47
PROVIDERS: ADMIT Family Medicine Addiction Medicine; ATTEND Family Medicine Addiction Medicine
PROC: HZ2ZZZZ Detoxification Services for Substance Abuse Treatment (ICD-10-PCS; principal; 2017-10-06)
PROC: HZ41ZZZ Group Counseling for Substance Abuse Treatment, Behavioral (ICD-10-PCS; 2017-10-08)
DX: F11.23 Opioid dependence with withdrawal (principal); F14.20 Cocaine dependence, uncomplicated; I10 Essential (primary) hypertension; E83.42 Hypomagnesemia; G89.21 Chronic pain due to trauma; S32.9XXS Fracture of unspecified parts of lumbosacral spine and pelvis, sequela; S72.001S Fracture of unspecified part of neck of right femur, sequela; V29.9XXS Motorcycle rider (driver) (passenger) injured in unspecified traffic accident, sequela; Z96.652 Presence of left artificial knee joint; Z81.3 Family history of other psychoactive substance abuse and dependence; F17.210 Nicotine dependence, cigarettes, uncomplicated; G47.00 Insomnia, unspecified; Z88.0 Allergy status to penicillin
CPT/HCPCS: 36415; 70030-TC; 80307; 80346; 80349; 80353; 80361; 83735; 85025; 86592; 86705; 86803; 87340; 87806; G0480; J1885; Q0163